=== PATIENT | female | born 1995 | race Caucasian/White ===

== ENCOUNTER 2018-10-20 16:05 | Emergency (ER) | payer OTHER ==
[~2018-10-20] VITALS: Ht 162.6 cm; Wt 72.7 kg
[2018-10-20 16:05] VITALS: BP 160/84
[2018-10-20] MEDS ORDERED: MIRE1IUD IU (16:11)
[2018-10-20] MEDS ORDERED: BRIN10TA4 PO (16:11)
[2018-10-20 16:40] LABS: BASO # 0.1 10^3/uL (0.0-0.2); BASO % 0.7 % (0.0-1.0); EOS # 0.4 10^3/uL (0.0-0.50); EOS % 4.7 % (0.0-3.0); HEMATOCRIT 35.3 % (36.0-47.0); HEMOGLOBIN 12.1 g/dl (12.0-15.5); LYMPH # 3.1 10^3/uL (1.5-6.5); LYMPH % 38.2 % (24.0-44.0); MEAN CORPUSCULAR HEMOGLOBIN 30.2 pg (27.0-33.0); MEAN CORPUSCULAR HGB CONC 34.3 g/dl (32.0-36.5); MONO # 0.7 10^3/uL (0.0-0.8); MONO % 8.5 % (0.0-5.0); NEUTROPHILS # 3.9 10^3/uL (1.8-7.7); NEUTROPHILS % 47.8 % (36.0-66.0); PLATELET COUNT, AUTOMATED 245 10^3/uL (150-450); RED BLOOD COUNT 4.01 10^6/uL (4.00-5.40); WHITE BLOOD COUNT 8.2 10^3/uL (4.0-10.0)
[2018-10-20 16:59] LABS: HCG, SERUM QUALITATIVE NEGATIVE (NEGATIVE)
[2018-10-20] MEDS ORDERED: EXPOSURE KIT-ADULT 7 DAY SUPPLY PO ONE (17:00)
[2018-10-20] MEDS ORDERED: RALT40TA PO (17:07)
[2018-10-20] MEDS ORDERED: TRUVTAB PO (17:07)
[2018-10-20] MEDS ORDERED: ONDA4TAB6 PO (17:08)
[2018-10-20 21:21] LABS: ALBUMIN 3.8 GM/DL (3.2-5.2); ALT/SGPT 15 U/L (12-78); BILIRUBIN,TOTAL 0.2 MG/DL (0.2-1.0); BLOOD UREA NITROGEN 13 MG/DL (7-18); CALCIUM LEVEL 8.3 MG/DL (8.5-10.1); CARBON DIOXIDE LEVEL 25 MEQ/L (21-32); CHLORIDE LEVEL 105 MEQ/L (98-107); CREATININE FOR GFR 0.69 MG/DL (0.55-1.30); GLOMERULAR FILTRATION RATE > 60.0 (>60); GLUCOSE, FASTING 103 MG/DL (70-100); HEPATITIS B SURFACE ANTIGEN NEGATIVE (NEGATIVE); SODIUM LEVEL 140 MEQ/L (136-145); TOTAL PROTEIN 6.6 GM/DL (6.4-8.2)
[2018-10-22 09:26] LABS: HEPATITIS B SURFACE ANTIBODY POSITIVE (POSITIVE)
== END 2018-10-20 17:17 | disposition home or self-care (01) ==
LOC: M ED 16:05
DX: Z77.21 Contact with and (suspected) exposure to potentially hazardous body fluids (principal); S61.235A Puncture wound without foreign body of left ring finger without damage to nail, initial encounter; W46.1XXA Contact with contaminated hypodermic needle, initial encounter; Y92.238 Other place in hospital as the place of occurrence of the external cause; Y99.0 Civilian activity done for income or pay; Z79.899 Other long term (current) drug therapy

== ENCOUNTER → 2019-05-02 | Outpatient (CLI) | payer OTHER ==
[~2019-05-02] MED LIST: BRIN10TA4 PO; MIRE1IUD IU; ONDA4TAB6 PO; RALT40TA PO; TRUVTAB PO
== END ==
LOC: M LRY 09:21
PROVIDERS: ATTEND Specialist
DX: O20.0 Threatened abortion (principal)

== ENCOUNTER 2019-06-05 09:46 | Day surgery (SDC) | payer BC, OTHER ==
[~2019-06-05] VITALS: Ht 162.6 cm; Wt 76.7 kg
[~2019-06-05 09:46] MED LIST changes: +LIDOCAINE 1% MDV 20ML VIAL SQ PRN; +LR 1,000 ML IV ONE; +SERT25TA85 PO
[2019-06-05 10:11] LABS: HEMATOCRIT 38.7 % (36.0-47.0); HEMOGLOBIN 13.1 g/dl (12.0-15.5); MEAN CORPUSCULAR HEMOGLOBIN 28.7 pg (27.0-33.0); MEAN CORPUSCULAR HGB CONC 33.9 g/dl (32.0-36.5); MEAN CORPUSCULAR VOLUME 84.9 fl (80.0-96.0); PLATELET COUNT, AUTOMATED 223 10^3/uL (150-450); RED BLOOD COUNT 4.56 10^6/uL (4.00-5.40); WHITE BLOOD COUNT 9.5 10^3/uL (4.0-10.0)
[2019-06-05] MEDS ORDERED: LIDOCAINE 2% INJ 100 MG/5 ML SDV (FOR ANES.) As Ordered ONE (10:45)
[2019-06-05] MEDS ORDERED: PROPOFOL 200 MG/20 ML VIAL As Ordered ONE (10:45)
[2019-06-05] MEDS ORDERED: ONDANSETRON 4MG/2ML VIAL (J2405) As Ordered ONE (10:45)
[2019-06-05] MEDS ORDERED: dexameTHASONE 4 MG/ML 1ML VIAL (J1100) As Ordered ONE (10:45)
[2019-06-05] MEDS ORDERED: fentaNYL 100 MCG/2 ML INJECTION (J3010) As Ordered ONE (10:47)
[2019-06-05] MEDS ORDERED: MIDAZOLAM INJ 2 MG/2 ML VIAL (J2250) As Ordered ONE (10:47)
[2019-06-05] MEDS ORDERED: LIDOCAINE 1% SDV INJ 30 ML VIAL As Ordered ONE (11:10)
[2019-06-05] MEDS ORDERED: KETOROLAC 60 MG/2 ML VIAL (J1885) As Ordered ONE (11:53)
[2019-06-05] MEDS ORDERED: fentaNYL 100 MCG/2 ML INJECTION (J3010) IV PRN (12:30)
[2019-06-05] MEDS ORDERED: PERCOCET 5MG/325MG TAB PO PRN ×2 (12:30)
[2019-06-05] MEDS ORDERED: LR 1,000 ML IV SCH (12:30)
[2019-06-05] MEDS ORDERED: ONDANSETRON 4MG/2ML VIAL (J2405) IV PRN (12:30)
--- NOTE | 2019-06-05 12:44 | RO ---
DATE OF PROCEDURE: 06/05/2019 PREOPERATIVE DIAGNOSIS: Missed . POSTOPERATIVE DIAGNOSIS: Missed . PROCEDURE: Dilation with sharp and suction curettage. SURGEON: Natasha Luevano MD SOCIAL SCIENTIST: None. ANESTHESIA: General via laryngeal mask airway. ESTIMATED BLOOD LOSS: 20 mL. INTRAVENOUS FLUIDS: 800 mL lactated Ringer's solution. URINE OUTPUT: Not obtained. SPECIMENS: Intrauterine contents. PREOPERATIVE ANTIBIOTICS: None. DESCRIPTION OF OPERATION: After informed consent was obtained and written consent was reviewed, the patient brought to the operating room where she was placed under general anesthesia. She was placed in hotomy position and prepped and draped in a normal sterile fashion. A time out in the operating room was then performed identifying the patient, procedure to be performed, as well as drug allergies. A bivalve speculum was placed the revealing cervix. The anterior lip of the cervix was grasped with a single-tooth tenaculum. The uterus was then sounded to 11 cm. The cervix then sequentially dilated using dilators. A #9 uterine curette was then advanced through the cervical os to the level of the fundus. It was attached to suction. Suction was deployed and the uterus curetted in a 360 degrees fashion with moderate amounts of tissue obtained. This was done on two passes. The suction curette was then removed and a sharp curette was then advanced through the cervical os to the level of the fundus and the uterus was curetted in a 360 degrees fashion with minimal tissue obtained. A final pass with suction suction curette was performed only productive of minimal amounts of blood. Instruments then removed from the patient's vagina. Single tooth tenaculum was removed. Tenaculum sites were noted be hemostatic. Speculum was then removed. The patient was then taken out of lithotomy position and was awakened from anesthesia and taken to recovery in stable condition. Counts were correct. MTDD
[2019-06-05 13:45] VITALS: BP 130/77
[2019-06-05] MEDS ORDERED: KETOROLAC 30 MG/ML VIAL (J1885) IV SCH (18:00)
== END 2019-06-05 14:09 | disposition home or self-care (01) ==
LOC: M SDC 09:46
PROVIDERS: ATTEND Obstetrics & Gynecology
DX: O02.1 Missed abortion (principal); F41.9 Anxiety disorder, unspecified; F32.9 Major depressive disorder, single episode, unspecified; Z79.899 Other long term (current) drug therapy
CPT/HCPCS: 36415; 59820; 85027; 86850; 86870; 86900; 86901; 88305; J1100; J1885; J2250; J2405; J3010

== ENCOUNTER → 2019-09-21 | Outpatient (CLI) | payer BC, OTHER ==
[~2019-09-21] MED LIST changes: -LIDOCAINE 1% MDV 20ML VIAL SQ PRN; -LR 1,000 ML IV ONE
== END ==
LOC: M LRY 12:46
PROVIDERS: ATTEND Advanced Practice Midwife
DX: O20.0 Threatened abortion (principal)

== ENCOUNTER → 2019-09-23 | Outpatient (REF) | payer OTHER | LOC: M PLALAB 13:47 | PROVIDERS: ATTEND Advanced Practice Midwife | DX: O20.0 Threatened abortion (principal) ==

== ENCOUNTER → 2020-07-25 | Outpatient (CLI) | payer SELFPAY | LOC: M LABSMTC 13:40 | PROVIDERS: ATTEND Pediatrics | DX: Z11.59 Encounter for screening for other viral diseases (principal) ==

== ENCOUNTER → 2020-09-13 | Outpatient (REF) | payer BC, OTHER ==
[2020-09-13 21:51] LABS: CHLAMYDIA DNA AMPLIFICATION NEGATIVE (NEGATIVE); GC DNA AMPLIFICATION NEGATIVE (NEGATIVE)
== END ==
LOC: M WUC 18:34
PROVIDERS: ATTEND Physician Assistant
DX: R10.2 Pelvic and perineal pain (principal)

== ENCOUNTER → 2020-09-29 | Outpatient (CLI) | payer BC, OTHER ==
--- NOTE | 2020-09-30 05:16 | REP ---
INDICATION: PELVIC PAIN ? OVARIAN CYST COMPARISON: None. TECHNIQUE: Transabdominal pelvic ultrasound followed by transvaginal examination for better evaluation of the endometrium and adnexa with color Doppler evaluation of the ovaries. FINDINGS: Bladder is unremarkable and measures 8.6 x 7.7 x 2.7 cm. Normal retroverted uterus measures 6.6 x 3.9 x 4.1 cm. The endometrial complex measures 7.5 mm thickness. No discrete uterine or endometrial abnormalities are appreciated. Bilateral ovaries are normal in vascularity without evidence for torsion and demonstrate few physiologic cysts/follicles. Right ovary measures 3.2 x 2.1 x 1.8 cm; R I = 0.44. Left ovary measures 2.6 x 2.2 x 3.0 cm and includes 6 mm non-specific echogenic focus; R I = 0.45. Small amount of pelvic fluid likely physiologic. IMPRESSION: Essentially normal pelvic ultrasound. <Electronically signed by Kurt Hernandez > 09/30/20 0503
== END ==
LOC: M RAD 09:59
PROVIDERS: ATTEND Physician Assistant
DX: R10.2 Pelvic and perineal pain (principal)